=== PATIENT | male | born 1990 | race Caucasian/White ===

== ENCOUNTER 2025-03-26 10:48 | Outpatient (REF) | payer OTHER, SELFPAY ==
[2025-03-26 16:22] LABS: Hemoglobin A1C 4.7 % (<5.7)
[2025-03-26 16:26] LABS: ALT 60 U/L (10-49); AST 36 U/L (<34); Albumin 4.7 g/dL (3.2-5.0); Alkaline Phosphatase 65 U/L (46-116); Anion Gap 8.3 mmol/L (3-11); BUN 17 mg/dL (9-23); Bilirubin, Total 0.70 mg/dL (0.2-1.2); CO2 26.7 mmol/L (20.0-31.0); Calcium 9.4 mg/dL (8.3-10.6); Chloride 108 mmol/L (98-107); Cholesterol 175 mg/dL (<200); Glucose 75 mg/dL (74-106); HDL Cholesterol 38 mg/dL (>40); Potassium 4.4 mmol/L (3.5-5.1); Sodium 143 mmol/L (136-145); Total Protein 7.2 g/dL (5.7-8.2)
[2025-03-26 16:39] LABS: Uric Acid 7.8 mg/dL (3.7-9.2)
== END 2025-03-26 10:49 | disposition home or self-care (01) ==
LOC: NCHCN 10:48
PROVIDERS: PCP Nurse Practitioner Adult Health; Visit Provider Nurse Practitioner Family
DX: Z13.220 Encounter for screening for lipoid disorders (principal); Z87.39 Personal history of other diseases of the musculoskeletal system and connective tissue; E66.9 Obesity, unspecified
CPT/HCPCS: 80053; 80061; 83036; 84550